=== PATIENT | female | born 1970 | race Caucasian/White ===

== ENCOUNTER 2016-10-23 13:50 | Emergency (ER) | payer OTHER ==
[~2016-10-23] VITALS: Ht 165.1 cm; Wt 108.9 kg
[2016-10-23 14:09] VITALS: BP 162/99
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
[2016-10-23] MEDS ORDERED: IBUPROFEN 800 MG TABLET. PO ONE (15:00)
--- NOTE | 2016-10-23 15:43 | RAD ---
3 view left elbow study History: Fall today and posterior left elbow pain. Findings: No joint effusion is seen. No acute fracture or dislocation or osteolytic process is seen. IMPRESSION: No acute fracture.
== END 2016-10-23 15:55 | disposition home or self-care (01) ==
LOC: ER 13:50
DX: M25.522 Pain in left elbow (principal); E11.9 Type 2 diabetes mellitus without complications; W17.89XA Other fall from one level to another, initial encounter; Y93.89 Activity, other specified; Y99.8 Other external cause status; Y92.89 Other specified places as the place of occurrence of the external cause
CPT/HCPCS: 73080; 99284

== ENCOUNTER → 2020-04-09 | Outpatient (CLI) | payer MEDICARE, OTHER ==
--- NOTE | 2020-04-09 13:58 | RAD ---
MR#: [id number] Date of Study: 04/09/2020 Ordering Physician: ZAK MANDUJANO, Referring Physician: ZAK MANDUJANO, Tech: Johan Conrad MBA, RDMS, RVT, RDCS, RTR APPROVED REPORT Patient Location : OUT-PATIENT Indications Lower Extremity Edema : Bilateral Greater Saphenous Veins (GSV) Significant venous relux noted in the LEFT GSV at the following levels : Proximal Thigh, Mid Thigh, D istal Thigh, , Proximal Calf, Mid Calf, Distal Calf Lesser Saphenous Veins (LSV) Significant venous reflux is noted in the Left LSV. Findings Grayscale images of the bilateral saphenofemoral junctions did not reveal any obvious evidence of thr ombus. The right great saphenous vein measures approximately 5.1 mm and does not show any evidence of reflux . The left great saphenous vein measures approximately 5 mm and has a reflux time of 3.3 seconds. The left lesser saphenous vein demonstrate a reflux time of 1.8 seconds and measures approximately 2. 7 mm in greatest diameter. The right lesser saphenous vein does not show any evidence of reflux. Critical Notification Critical Value: No <Conclusion> 1. Positive for reflux in the left greater and lesser saphenous veins. Signed by : Moise Joe, Electronically Approved : 04/09/2020 13:57:39
--- NOTE | 2020-04-09 16:42 | CARD ---
MR#: [id number] Date of Study: 04/09/2020 Ordering Physician: ZAK MANDUJANO, Referring Physician: ZAK MANDUJANO Tech: Malgorzata Steinberg GERALD APPROVED REPORT EXAM: Two-dimensional and M-mode echocardiogram with Doppler and color Doppler. Other Information Quality : Good INDICATION Peripheral Edema 2D DIMENSIONS RVDd2.8 (2.9-3.5cm)Left Atrium(2D)3.0 (1.6-4.0cm) IVSd1.5 (0.7-1.1cm)Aortic Root(2D)2.6 (2.0-3.7cm) LVDd3.5 (3.9-5.9cm)LVOT Diameter1.8 (1.8-2.4cm) PWd1.0 (0.7-1.1cm)LVDs2.3 (2.5-4.0cm) FS (%) 33.5 %SV31.6 ml LVEF(%)63.3 (>50%) Aortic Valve AoV Peak Dwain.162.4cm/sAoV VTI30.6cm AO Peak GR.10.6mmHgLVOT Peak Dwain.114.9cm/s AO Mean GR.5mmHgAVA (VMAX)1.75cm2 Mitral Valve MV E Qfbapahc34.7cm/sMV DECEL UTSJ668ro MV A Mhjsqdka339.6cm/sE/A Ratio0.7 Tricuspid Valve TR P. Molsdvkw414so/sRAP TENUPPKJ7hcRx TR Peak Gr.59omYmUFHU20znLf Pulmonary Vein S1 Ghyhgqzj74.5cm/sD2 Abuzrtzt42.8cm/s LEFT VENTRICLE The left ventricle is normal size. There is mild concentric left ventricular hypertrophy. The left ve ntricular systolic function is normal and the ejection fraction is within normal range. The Ejection Fraction is 60-65%. There is normal LV segmental wall motion. Transmitral Doppler flow pattern is Gra de I-abnormal relaxation pattern. RIGHT VENTRICLE The right ventricle is normal size. The right ventricular systolic function is normal. ATRIA The left atrium size is normal. The right atrium size is normal. The interatrial septum is intact wit h no evidence for an atrial septal defect or patent foramen ovale as noted on 2-D or Doppler imaging. AORTIC VALVE The aortic valve is mildly sclerotic and appears trileaflet. Doppler and Color Flow revealed no signi ficant aortic regurgitation. There is no significant aortic valvular stenosis. MITRAL VALVE The mitral valve is calcified but opens well. There is no evidence of mitral valve prolapse. There is no mitral valve stenosis. Doppler and Color-flow revealed trace mitral regurgitation. TRICUSPID VALVE The tricuspid valve is normal in structure and function. Doppler and Color Flow revealed physiologica l tricuspid regurgitation. The PA pressure was estimated at 30 mmHg. There is no tricuspid valve sten osis. PULMONIC VALVE The pulmonary valve is normal in structure and function. Doppler and Color Flow revealed trace pulmon ic valvular regurgitation. There is no pulmonic valvular stenosis. GREAT VESSELS The aortic root is normal in size. The ascending aorta is normal in size. The IVC is normal in size a nd collapses >50% with inspiration. PERICARDIAL EFFUSION There is no evidence of significant pericardial effusion. Critical Notification Critical Value: No <Conclusion> The left ventricular systolic function is normal and the ejection fraction is within normal range. Th e Ejection Fraction is 60-65%. There is normal LV segmental wall motion. Signed by : Moise Joe, Electronically Approved : 04/09/2020 16:42:24
== END ==
LOC: US 12:15
PROVIDERS: ATTEND Internal Medicine Cardiovascular Disease
DX: I08.1 Rheumatic disorders of both mitral and tricuspid valves (principal); R60.0 Localized edema
CPT/HCPCS: 93306; 93970

== ENCOUNTER 2021-02-02 17:04 | Emergency (ER) | payer MEDICARE, OTHER ==
[~2021-02-02] VITALS: Ht 165.1 cm; Wt 90.9 kg
--- NOTE | 2021-02-02 17:54 | PHYS DOC ---
Past Medical History Past Medical History: Anxiety, Diabetes-Type II, Hypotension Past Surgical History: No Surgical History, Hysterectomy Smoking Status: Former Smoker Alcohol Use: None Drug Use: None General Adult EDM: Chief Complaint: CHEST PAIN HPI: HPI: Patient is a 51 year old female who presents with midsternal chest pain. Patient states that pain started around 430 while she was at work. Denies radiation. Rates 9/10. Nothing makes pain better or worse. Reports nausea. Describes pain as a squeezing, tight feeling. 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 Patient reports history of hypertension. No tobacco, alcohol, drugs use. Unknown family history. Review of Systems: Review of Systems: ROS At least 10 ROS systems have been reviewed and are negative except as documented in the HPI. General: Negative except as outlined in HPI above. Skin: Negative except as outlined in HPI above. HEENT: Negative except as outlined in HPI above. Neck: Negative except as outlined in HPI above. Respiratory: Negative except as outlined in HPI above.. Cardiovascular: Negative except as outlined in HPI above. Abdomen: Negative except as outlined in HPI above. : Negative except as outlined in HPI above. Back/MSK: Negative except as outlined in HPI above. Neuro: Negative except as outlined in HPI above. Psych: Negative except as outlined in HPI above. Heart Score: C/O Chest Pain: Yes HEART Score for Chest Pain: HEART Score for Chest Pain Response (Comments) Value History Slighlty/Non-Suspicious 0 ECG Normal 0 Age >45 - < 65 1 Risk Factors 1 or 2 Risk Factors 1 Troponin < Normal Limit 0 Total 2 Risk Factors: Risk Factors: DM, Current or recent (<one month) smoker, HTN, HLP, family history of CAD, obesity. Risk Scores: Score 0 - 3: 2.5% MACE over next 6 weeks - Discharge Home Score 4 - 6: 20.3% MACE over next 6 weeks - Admit for Clinical Observation Score 7 - 10: 72.7% MACE over next 6 weeks - Early Invasive Strategies Current Medications: Current Medications Medications (Trade) Dose Ordered Sig/[facility] Start Time Stop Time Status Last Admin Dose Admin Aspirin (Aspirin Chewable) 324 mg 1X ONCE 02/02/21 17:45 02/02/21 17:46 UNV Nitroglycerin (Nitrostat) 0.4 mg PRN Q5MIN PRN 02/02/21 17:45 02/03/21 17:44 UNV Sodium Chloride 1,000 ml @ 1,000 mls/hr Q1H 02/02/21 17:45 02/02/21 18:44 UNV Allergies: Allergies: Allergies Coded Allergies Type Severity Reaction Last Updated Verified No Known Drug Allergies 10/23/16 No Physical Exam: PE: Constitutional: Well developed, well nourished, no acute distress, non-toxic appearance. [] HENT: Normocephalic, atraumatic, bilateral external ears normal, oropharynx moist, no oral exudates, nose normal. [] Eyes: PERRLA, EOMI, conjunctiva normal, no discharge. [] Neck: Normal range of motion, no tenderness, supple, no stridor. [] Cardiovascular:Heart rate sinus tachycardia Lungs & Thorax: Bilateral breath sounds clear to auscultation [] Abdomen: Bowel sounds normal, soft, no tenderness, no masses, no pulsatile masses. [] Skin: Warm, dry, no erythema, no rash. [] Back: No tenderness, no CVA tenderness. [] Extremities: No tenderness, no cyanosis, no clubbing, ROM intact, no edema. [] Neurologic: Alert and oriented X 3, normal motor function, normal sensory function, no focal deficits noted. [] Psychologic: Anxious affect, judgement normal, mood normal. [] Current Patient Data: Vital Signs: Vital Signs Date Time Temp Pulse Resp B/P (MAP) Pulse Ox O2 Delivery O2 Flow Rate FiO2 02/02/21 17:21 97.5 106 18 169/103 (125) 96 Room Air 97.5 EKG: EKG: Sinus tachycardia, heart rate 108 bpm. No STEMI. Radiology/Procedures: Radiology/Procedures: [] Exam: Chest one view INDICATION: Chest pain TECHNIQUE: Frontal view of the chest Comparisons: None FINDINGS: The cardiomediastinal silhouette and pulmonary vessels are within normal limits. The lung and pleural spaces are clear. IMPRESSION: No acute cardiopulmonary process. Electronically signed by: Ludy Mata MD (02/02/2021 6:16 PM) [facility] Course & Med Decision Making: Course & Med Decision Making Pertinent Labs and Imaging studies reviewed. (See chart for details) [] 51-year-old female presents with mid sternal chest pain that started at 430 today. 324 aspirin given. Patients pain resolved after 2nd Nitro was administered. Sodium 127, Glucose of 510, Potassium of 3.1. Patient currently takes Metform in for Diabetes. NS bolus given. Patient given 40 mEq of potassium. Heart score of 2. No elevation in troponin levels. Discussed results with patient. Advised patient to call her doctor in the morning to make a follow-up appointment. Patient verbalized understanding of discharge instructions and agrees with plan. Patient is hemodynamically stable upon disposition. Dragon Disclaimer: Dragon Disclaimer: This electronic medical record was generated, in whole or in part, using a voice recognition dictation system. Departure Departure Impression: Primary Impression: Chest pain Qualified Codes: R07.9 - Chest pain, unspecified Additional Impression: Hypokalemia Disposition: HOME / SELF CARE / HOMELESS Condition: STABLE Referrals: HUSEYIN STRONG MD (PCP) Patient Instructions: Chest Pain (Nonspecific), [id number] Additional Instructions: You are seen in the emergency room for chest pain. All of your labs came back unremarkable. Please call your PCP for follow-up appointment. Return to the emergency room if you have worsening symptoms or concerns. EMERGENCY DEPARTMENT GENERAL DISCHARGE INSTRUCTIONS Thank you for coming to [facility] Emergency Department (ED) today and trusting us with you care. We trust that you had a positive experience in our Emergency Department. If you wish to speak to the department management, you may call the Director at [phone]. YOUR FOLLOW UP INSTRUCTIONS ARE FOLLOWS: 1. Do you have a private Doctor? If you do not have a private doctor, please ask for a resource list of physicians or clinics that may be able to assist you with follow up care. 2. The Emergency Physicain has interpreted your x-rays. The X-Ray specialist will also review them. If there is a change in the findings, you will be notified in 48 hours when at all possible. 3. A lab test or culture has been done, your results will be reviewed and you will be notified if you need a change in treatment. ADDITIONAL INSTRUCTIONS AND INFORMATION: 1. Your care today has been supervised by a physician who is specially trained in emergency care. Many problems require more than one evaluation for a complete diagnosis and treatment. We recommend that you schedule your follow up appointment as recommended to ensure complete treatment of you illness or injury. If you are unable to obtain follow up care and continue to have a problem, or if your condition worsens, we recommend that you return to the ED. 2. We are not able to safely determine your condition over the phone nor are we able to give sound medical advice over the phone. For these safety reasons, if you call for medical advice we will ask you to come to the ED for further evaluation. 3. If you have any questions regarding these discharge instructions please call the ED at [phone]. SAFETY INFORMATION: In the interest of safety, wellness, and injury prevention; we encourage you to wear your sealbelt, if you smoke; quite smoking, and we encourage family to use a protective helmet for bicycling and other sporting events that present an increased risk for head injury. IF YOUR SYMPTOMS WORSEN OR NEW SYMPTOMS DEVELOP, OR YOU HAVE CONCERNS ABOUT YOUR CONDITION; OR IF YOUR CONDITION WORSENS WHILE YOU ARE WAITING FOR YOUR FOLLOW UP APPOINTMENT; EITHER CONTACT YOUR PRIMARY CARE DOCTOR, THE PHYSICIAN WHOSE NAME AND NUMBER YOU WERE GIVEN, OR RETURN TO THE ED IMMEDIATELY. KRISTIE DUARTE APRN Feb 02, 2021 17:54
[2021-02-02] MEDS ORDERED: IV NORMAL SALINE 1000ML BAG 1,000 ML IV SCH (18:00)
[2021-02-02] MEDS ORDERED: ASPIRIN CHEWABLE 81 MG TABLET. PO ONE (18:00)
[2021-02-02 18:13] LABS: BASO % 1 % (0-3); EOS % 0 % (0-3); HEMATOCRIT 44.3 % (36.0-47.0); HEMOGLOBIN 14.9 g/dL (12.0-15.5); LYMPH # 1.4 x10^3/uL (1.0-4.8); LYMPH % 26 % (24-48); MEAN CORPUSCULAR HEMOGLOBIN 28 pg (25-35); MEAN CORPUSCULAR HGB CONC 34 g/dL (31-37); MEAN CORPUSCULAR VOLUME 83 fL (79-100); MONO # 0.7 x10^3/uL (0.0-1.1); MONO % 13 % (0-9); NEUT # 3.1 x10^3/uL (1.8-7.7); NEUT % 60 % (31-73); PLATELET COUNT 232 x10^3/uL (140-400); RED BLOOD COUNT 5.38 x10^6/uL (3.50-5.40); RED CELL DISTRIBUTION WIDTH 14.2 % (11.5-14.5); WHITE BLOOD COUNT 5.2 x10^3/uL (4.0-11.0)
--- NOTE | 2021-02-02 18:19 | RAD ---
Exam: Chest one view INDICATION: Chest pain TECHNIQUE: Frontal view of the chest Comparisons: None FINDINGS: The cardiomediastinal silhouette and pulmonary vessels are within normal limits. The lung and pleural spaces are clear. IMPRESSION: No acute cardiopulmonary process. Electronically signed by: Ludy Mata MD (02/02/2021 6:16 PM) [facility]
[2021-02-02 18:29] LABS: ALBUMIN 3.9 g/dL (3.4-5.0); ALBUMIN/GLOBULIN RATIO 0.9 (1.0-1.7); CALCIUM 9.3 mg/dL (8.5-10.1); CREATININE 1.1 mg/dL (0.6-1.0); GFR 52.6; MAGNESIUM 1.7 mg/dL (1.8-2.4); POTASSIUM 3.1 mmol/L (3.5-5.1); TOTAL BILIRUBIN 0.8 mg/dL (0.2-1.0); TOTAL PROTEIN 8.4 g/dL (6.4-8.2)
[2021-02-02] MEDS: NITROGLYCERIN SUBLINGUAL 0.4 MG BOTTLE OF 25. SL PRN ×2 (19:29→20:29)
[2021-02-02] MEDS ORDERED: POTASSIUM CHLORIDE 20 MEQ TABLET.ER. PO ONE (21:00)
[2021-02-02] MEDS ORDERED: KETOROLAC 15 MG/ML VIAL. IVP ONE (21:00)
[2021-02-02 21:43] LABS: BILIRUBIN,URINE NEGATIVE (NEG); CLARITY,URINE CLEAR; COLOR,URINE YELLOW; NITRITE,URINE NEGATIVE (NEG); PH,URINE 6.5 (<5.0-8.0); PROTEIN,URINE NEGATIVE (NEG-TRACE); UROBILINOGEN,URINE 0.2 mg/dL (0.2 mg/dL)
[2021-02-02 21:49] LABS: BARBITURATES NEG (NEG); BENZODIAZEPINES NEG (NEG); CANNABINOIDS NEG (NEG); COCAINE NEG (NEG); METHADONE NEG (NEG); OPIATES NEG (NEG); PHENCYCLIDINE NEG (NEG)
[2021-02-02 21:53] LABS: BACTERIA,URINE 0 /HPF (0-FEW); RBC,URINE 0 /HPF (0-2); WBC,URINE RARE /HPF (0-4); YEAST,URINE PRESENT /HPF
[2021-02-02 21:58] LABS: AMPHETAMINE/METHAMPHETAMINE NEG (NEG)
[2021-02-02 23:00] VITALS: BP 149/98
--- NOTE | 2021-02-02 23:43 | EKG ---
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
== END 2021-02-02 23:00 | disposition home or self-care (01) ==
LOC: ER 17:04
DX: R07.2 Precordial pain (principal); R11.0 Nausea; E11.9 Type 2 diabetes mellitus without complications; I10 Essential (primary) hypertension; Z87.891 Personal history of nicotine dependence; Z90.710 Acquired absence of both cervix and uterus
CPT/HCPCS: 36415; 71045; 80053; 80307; 81001; 83690; 83735; 83880; 84484; 85025; 93005; 96360; 99285; J7030

== ENCOUNTER 2021-03-31 02:51 | Emergency (ER) | payer MEDICARE, OTHER ==
[~2021-03-31] VITALS: Ht 165.1 cm; Wt 86.4 kg
[2021-03-31 09:03] VITALS: BP 177/112
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
[2021-03-31] MEDS ORDERED: IBUPROFEN 200 MG TABLET. PO ONE (09:30)
--- NOTE | 2021-03-31 09:46 | RAD ---
XR SHOULDER_LEFT 2+ VIEWS 03/31/2021 9:17 AM INDICATION: Pain COMPARISON: None available. TECHNIQUE: 3 views left shoulder are provided. FINDINGS/ IMPRESSION: There is no acute fracture or dislocation. Joint spaces are maintained. Bone mineralization is within normal limits. Regional soft tissues are within normal limits. There is no soft tissue gas or osseou s erosion. No radiopaque foreign body. Electronically signed by: Maria T Kim MD (03/31/2021 9:44 AM) [id number]
[2021-03-31] MEDS ORDERED: CYCL10TA19 PO (13:31)
== END 2021-03-31 10:36 | disposition home or self-care (01) ==
LOC: ER 02:51
DX: M25.512 Pain in left shoulder (principal); G89.11 Acute pain due to trauma; E11.9 Type 2 diabetes mellitus without complications; I10 Essential (primary) hypertension; Z87.891 Personal history of nicotine dependence; V49.49XA Driver injured in collision with other motor vehicles in traffic accident, initial encounter; Y93.89 Activity, other specified; Y92.488 Other paved roadways as the place of occurrence of the external cause; Y99.8 Other external cause status
CPT/HCPCS: 73030; 99283

== ENCOUNTER 2021-05-28 19:19 | Emergency (ER) | payer MEDICARE ==
[~2021-05-28] VITALS: Ht 165.1 cm; Wt 87.9 kg
[~2021-05-28 19:19] MED LIST: CYCL10TA19 PO
[2021-05-28] MEDS ORDERED: KETOROLAC 60 MG/2 ML VIAL. IM ONE (22:30)
[2021-05-28] MEDS ORDERED: NAPR-514 PO (22:39)
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
[2021-05-28 22:58] VITALS: BP 188/110
== END 2021-05-28 23:00 | disposition home or self-care (01) ==
LOC: ER 19:19
DX: M79.602 Pain in left arm (principal); E11.9 Type 2 diabetes mellitus without complications; I10 Essential (primary) hypertension
CPT/HCPCS: 96372; 99283; J1885

== ENCOUNTER 2021-06-17 13:44 | Emergency (ER) | payer MEDICARE, OTHER ==
[~2021-06-17] VITALS: Ht 165.1 cm; Wt 85.7 kg
[~2021-06-17 13:44] MED LIST changes: +NAPR-514 PO
[2021-06-17] MEDS ORDERED: ASPIRIN CHEWABLE 81 MG TABLET. PO ONE (14:15)
[2021-06-17] MEDS ORDERED: NITROGLYCERIN SUBLINGUAL 0.4 MG BOTTLE OF 25. SL PRN (14:15)
[2021-06-17] MEDS ORDERED: IV NORMAL SALINE 1000ML BAG 1,000 ML IV SCH (14:15)
--- NOTE | 2021-06-17 14:17 | EKG ---
[facility] [address] [place] [address] Test Date: 2021-06-17 Test Time: 13:55:53 Pat Name: MINDY BLANTON Department: Room: Gender: F President & Ceo: : 1970 Requested By: ROSALIA GREWAL Order Number: [id number] Reading MD: Moise Joe MD Measurements Intervals [place] Rate: 94 P: 24 KS: 118 QRS: 41 QRSD: 86 T: 17 QT: 362 QTc: 453 Interpretive Statements SINUS RHYTHM Electronically Signed On 06-18-2021 17:38:39 CDT by Moise Joe MD
[2021-06-17 14:19] LABS: BASO % 1 % (0-3); EOS # 0.1 x10^3/uL (0.0-0.7); EOS % 2 % (0-3); HEMATOCRIT 41.8 % (36.0-47.0); LYMPH # 1.4 x10^3/uL (1.0-4.8); LYMPH % 22 % (24-48); MEAN CORPUSCULAR HEMOGLOBIN 28 pg (25-35); MEAN CORPUSCULAR HGB CONC 34 g/dL (31-37); MEAN CORPUSCULAR VOLUME 84 fL (79-100); MONO # 0.3 x10^3/uL (0.0-1.1); MONO % 4 % (0-9); NEUT # 4.8 x10^3/uL (1.8-7.7); NEUT % 72 % (31-73); PLATELET COUNT 244 x10^3/uL (140-400); RED CELL DISTRIBUTION WIDTH 13.6 % (11.5-14.5); WHITE BLOOD COUNT 6.6 x10^3/uL (4.0-11.0)
[2021-06-17 14:34] LABS: CALCIUM 9.1 mg/dL (8.5-10.1); CREATININE 0.7 mg/dL (0.6-1.0); GFR 88.6; POTASSIUM 4.3 mmol/L (3.5-5.1)
[2021-06-17 14:40] LABS: ALBUMIN 3.7 g/dL (3.4-5.0); ALBUMIN/GLOBULIN RATIO 0.9 (1.0-1.7); TOTAL BILIRUBIN 0.5 mg/dL (0.2-1.0); TOTAL PROTEIN 7.9 g/dL (6.4-8.2)
--- NOTE | 2021-06-17 14:42 | RAD ---
Single view of the chest. 06/17/2021 2:16 PM Indication: Chest pain: Comparison: Chest radiograph the 2020 Findings: There is no focal consolidation. There is no pleural effusion or pneumothorax. The cardiome diastinal silhouette and pulmonary vasculature are within normal limits. No acute osseous abnormaliti es are seen. Impression: No evidence of acute cardiopulmonary process. Electronically signed by: Bairon Polk MD (06/17/2021 2:40 PM) [id number]
--- NOTE | 2021-06-17 15:37 | PHYS DOC ---
Past Medical History Past Medical History: Anxiety, Diabetes-Type II, Hypotension Past Surgical History: Hysterectomy, Oophorectomy Smoking Status: Former Smoker Alcohol Use: None Drug Use: None General Adult EDM: Chief Complaint: CHEST PAIN HPI: HPI: Patient is a 51-year-old female who presents to the emergency department for midsternal chest pain that started around 8 AM. Patient describes it as a tightness. She rates it 10 out of 10. No alleviating or aggravating factors. She reports that she is short of breath with this. She states that she has had chest pain previously. Patient denies nausea, vomiting, cough, fever. No treatment for pain prior to arrival. She has a history of hypertension and diabetes. Review of Systems: Review of Systems: Constitutional: See HPI Respiratory: See HPI Cardiovascular: See HPI GI: See HPI Heart Score: C/O Chest Pain: Yes HEART Score for Chest Pain: HEART Score for Chest Pain Response (Comments) Value History Slighlty/Non-Suspicious 0 ECG Nonspecific Repolarizatio 1 Age >45 - < 65 1 Risk Factors 1 or 2 Risk Factors 1 Troponin < Normal Limit 0 Total 3 Risk Factors: Risk Factors: DM, Current or recent (<one month) smoker, HTN, HLP, family history of CAD, obesity. Risk Scores: Score 0 - 3: 2.5% MACE over next 6 weeks - Discharge Home Score 4 - 6: 20.3% MACE over next 6 weeks - Admit for Clinical Observation Score 7 - 10: 72.7% MACE over next 6 weeks - Early Invasive Strategies Current Medications: Current Medications Medications (Trade) Dose Ordered Sig/[facility] Start Time Stop Time Status Last Admin Dose Admin Aspirin (Aspirin Chewable) 324 mg 1X ONCE 06/17/21 14:15 06/17/21 14:17 DC 06/17/21 14:15 324 MG Nitroglycerin (Nitrostat) 0.4 mg PRN Q5MIN PRN 06/17/21 14:15 06/18/21 14:14 06/17/21 14:23 0.4 MG Sodium Chloride 1,000 ml @ 1,000 mls/hr Q1H 06/17/21 14:15 06/17/21 15:14 DC 06/17/21 14:15 1,000 MLS/HR Allergies: Allergies: Allergies Coded Allergies Type Severity Reaction Last Updated Verified No Known Drug Allergies 06/17/21 No Physical Exam: PE: Constitutional: Well developed, well nourished, no acute distress, non-toxic appearance. [] HENT: Normocephalic, atraumatic, bilateral external ears normal, oropharynx moist, no oral exudates, nose normal. [] Eyes: PERRL, EOMI, conjunctiva normal, no discharge. [] Neck: Normal range of motion, no stridor Cardiovascular:Heart rate regular rhythm, no murmur [] Lungs & Thorax: Bilateral breath sounds clear to auscultation [] Abdomen: Bowel sounds normal, soft, no tenderness, no masses, no pulsatile masses. [] Skin: Warm, dry, no erythema, no rash. [] Back: Normal ROM Extremities: No tenderness, no cyanosis, no clubbing, ROM intact, no edema. [] Neurologic: Alert and oriented X 3, normal motor function, normal sensory function, no focal deficits noted. [] Psychologic: Affect normal, judgement normal, mood normal. [] Current Patient Data: Labs: Laboratory Tests Test 06/17/21 14:08 White Blood Count 6.6 x10^3/uL (4.0-11.0) Red Blood Count 5.00 x10^6/uL (3.50-5.40) Hemoglobin 14.0 g/dL (12.0-15.5) Hematocrit 41.8 % (36.0-47.0) Mean Corpuscular Volume 84 fL (79-100) Mean Corpuscular Hemoglobin 28 pg (25-35) Mean Corpuscular Hemoglobin Concent 34 g/dL (31-37) Red Cell Distribution Width 13.6 % (11.5-14.5) Platelet Count 244 x10^3/uL (140-400) Neutrophils (%) (Auto) 72 % (31-73) Lymphocytes (%) (Auto) 22 % (24-48) L Monocytes (%) (Auto) 4 % (0-9) Eosinophils (%) (Auto) 2 % (0-3) Basophils (%) (Auto) 1 % (0-3) Neutrophils # (Auto) 4.8 x10^3/uL (1.8-7.7) Lymphocytes # (Auto) 1.4 x10^3/uL (1.0-4.8) Monocytes # (Auto) 0.3 x10^3/uL (0.0-1.1) Eosinophils # (Auto) 0.1 x10^3/uL (0.0-0.7) Basophils # (Auto) 0.0 x10^3/uL (0.0-0.2) Sodium Level 140 mmol/L (136-145) Potassium Level 4.3 mmol/L (3.5-5.1) Chloride Level 104 mmol/L (98-107) Carbon Dioxide Level 27 mmol/L (21-32) Anion Gap 9 (6-14) Blood Urea Nitrogen 14 mg/dL (7-20) Creatinine 0.7 mg/dL (0.6-1.0) Estimated GFR (Cockcroft-Gault) 88.6 BUN/Creatinine Ratio 20 (6-20) Glucose Level 125 mg/dL (70-99) H Calcium Level 9.1 mg/dL (8.5-10.1) Total Bilirubin 0.5 mg/dL (0.2-1.0) Aspartate Amino Transferase (AST) 19 U/L (15-37) Alanine Aminotransferase (ALT) 24 U/L (14-59) Alkaline Phosphatase 108 U/L (46-116) Troponin I High Sensitivity < 4 ng/L (4-50) L Total Protein 7.9 g/dL (6.4-8.2) Albumin 3.7 g/dL (3.4-5.0) Albumin/Globulin Ratio 0.9 (1.0-1.7) L Laboratory Tests 06/17/21 14:08 Laboratory Tests 06/17/21 14:08 Vital Signs: Vital Signs Date Time Temp Pulse Resp B/P (MAP) Pulse Ox O2 Delivery O2 Flow Rate FiO2 06/17/21 14:23 68 143/86 06/17/21 13:48 97.7 18 99 Room Air 97.7 EKG: EKG: [] EKG performed by ER staff at 1355 shows sinus rhythm with rate of 94, T wave inversions noted in lead III, QTC is 453, no STEMI read by Dr. French at 1358 Radiology/Procedures: Radiology/Procedures: []PROCEDURE: PORTABLE CHEST 1V Single view of the chest. 06/17/2021 2:16 PM Indication: Chest pain: Comparison: Chest radiograph the 2020 Findings: There is no focal consolidation. There is no pleural effusion or pneumothorax. The cardiomediastinal silhouette and pulmonary vasculature are within normal limits. No acute osseous abnormalities are seen. Impression: No evidence of acute cardiopulmonary process. Electronically signed by: Bairon Saul MD (06/17/2021 2:40 PM) [id number] DICTATED and SIGNED BY: BAIRON SAUL MD DATE: 06/17/21 1430 Course & Med Decision Making: Course & Med Decision Making Pertinent Labs and Imaging studies reviewed. (See chart for details) [] Patient presents to the emergency department for midsternal chest pain started at 8 AM. She is also reporting shortness of breath. She has a history of hypertension and diabetes. Work-up in the ER consisted of blood work including troponin, EKG and chest x-ray. Patient's heart score is 3. Patient was treated with aspirin and nitroglycerin. Patient was also given morphine for her pain and she is still reporting pain 5 out of 10 after nitroglycerin dose. Patient had a negative D-dimer and there was no blood in her urine. She did not have an elevated troponin. Unremarkable CBC and CMP. Patient is approximately 10 hours post chest pain onset. Repeat troponin was also negative. Patient is advised to follow-up with her primary care provider regarding her chest pain. She was given cardiology referral. I discussed with patient all findings and diagnostic testing as well as the need to follow-up with PCP for further evaluation and treatment or return to the ER if any new or worsening symptoms. Strict return precautions were also discussed at length. Patient voiced understanding and agreement with the plan. Patient is hemodynamically stable at the time of disposition. Dragon Disclaimer: Dragfranc Disclaimer: This electronic medical record was generated, in whole or in part, using a voice recognition dictation system. Departure Departure Impression: Primary Impression: Chest pain Qualified Codes: R07.9 - Chest pain, unspecified Disposition: HOME / SELF CARE / HOMELESS Condition: GOOD Referrals: HUSEYIN STRONG MD (PCP) BELEN SALTER MD Patient Instructions: Chest Pain (Nonspecific) Additional Instructions: You are seen in the emergency department today for chest pain. As we discussed, at this time it does not appear that you are experiencing acute coronary syndrome. Take Tylenol and ibuprofen for your pain. Increase your fluids and rest. Follow-up with your primary care provider tomorrow regarding your ER visit. You will need to follow-up with a hot saw helper, you can follow-up with one of the hot saw helper detaches discharge paperwork. I would advise you to contact them tomorrow to set up a follow-up appointment. Return to the emergency department if you develop chest pain, shortness of breath, high fevers refractory to treatment, tractable nausea vomiting, dizziness or any new or worsening concerns. ROSALIA GREWAL APRN Jun 17, 2021 15:37
[2021-06-17 17:07] LABS: BACTERIA,URINE 0 /HPF (0-FEW); RBC,URINE 0 /HPF (0-2); WBC,URINE 0 /HPF (0-4)
[2021-06-17] MEDS ORDERED: MORPHINE SULFATE 2 MG/ML INJ. IVP ONE (17:45)
[2021-06-17 18:47] VITALS: BP 135/69
== END 2021-06-17 18:49 | disposition home or self-care (01) ==
LOC: ER 13:44
DX: R07.2 Precordial pain (principal); R06.02 Shortness of breath; R07.89 Other chest pain; E11.9 Type 2 diabetes mellitus without complications; Z87.891 Personal history of nicotine dependence
CPT/HCPCS: 36415; 71045; 80053; 81001; 84484; 85025; 85379; 93005; 96361; 96374; 99285; J2270; J7030

== ENCOUNTER → 2021-08-06 | Outpatient (CLI) | payer MEDICARE, OTHER ==
--- NOTE | 2021-08-06 14:54 | RAD ---
EXAM: Obstetrics sonogram. HISTORY: Unsure dates. TECHNIQUE: Sonographic imaging of the pelvis was performed. COMPARISON: None. FINDINGS: The uterus measures 6.0 x 1.6 x 3.6 cm. The endometrial stripe measures 4.1 mm in thickness . The ovaries are obscured due to bowel gas. No adnexal mass or cyst seen. The bladder is unremarkabl e. IMPRESSION: 1. Unremarkable uterus. No intrauterine gestational sac is seen. The patient has a reported negative test. 2. Obscured ovaries. Electronically signed by: Evelin Johnson MD (08/06/2021 2:52 PM) [id number]
== END ==
LOC: US 12:21
PROVIDERS: ATTEND Obstetrics & Gynecology
DX: Z32.02 Encounter for pregnancy test, result negative (principal)
CPT/HCPCS: 76801; 76817